=== PATIENT | male | born 1970 | race African-American/Black ===

== ENCOUNTER 2018-03-05 08:04 | Emergency (ER) | payer MEDICAID ==
[~2018-03-05] VITALS: Ht 177.8 cm; Wt 98.1 kg
[2018-03-05 08:08] VITALS: BP 125/80
== END 2018-03-05 09:13 | disposition home or self-care (01) ==
LOC: ED 09:06
DX: K02.9 Dental caries, unspecified (principal)
CPT/HCPCS: 99283

== ENCOUNTER 2018-03-17 17:43 | Emergency (ER) | payer MEDICAID ==
[~2018-03-17] VITALS: Ht 177.8 cm; Wt 98.5 kg
[2018-03-17 18:05] VITALS: BP 119/80
== END 2018-03-17 18:31 | disposition home or self-care (01) ==
LOC: ED 18:21
DX: K02.9 Dental caries, unspecified (principal); Z76.0 Encounter for issue of repeat prescription
CPT/HCPCS: 99283

== ENCOUNTER 2018-05-01 09:34 | Emergency (ER) | payer MEDICAID ==
[~2018-05-01] VITALS: Ht 177.8 cm; Wt 95.5 kg
[2018-05-01] MEDS ORDERED: HYDROcodone/APAP 5/325 TABLET ONE (09:59)
[2018-05-01] MEDS ORDERED: HYDROcodone/APAP 5/325 TABLET PO ONE (10:00)
[2018-05-01 10:16] VITALS: BP 120/61
== END 2018-05-01 10:19 | disposition home or self-care (01) ==
LOC: ED 10:00
DX: K04.7 Periapical abscess without sinus (principal)
CPT/HCPCS: 99283

== ENCOUNTER 2021-01-12 15:11 | Emergency (ER) | payer MEDICAID ==
[~2021-01-12] VITALS: Ht 177.8 cm; Wt 107.2 kg
--- NOTE | 2021-01-12 16:04 | NUR ---
URINE COLLECTED AND SENT TO LAB.
[2021-01-12 16:20] LABS: MICROSCOPIC AUTO
[2021-01-12 16:32] LABS: BASOPHILS % (AUTO) 1 % (0-1); EOSINOPHILS % (AUTO) 4 % (1-7); LYMPHOCYTES % (AUTO) 33 % (22-44); MEAN CORPUSCULAR HEMOGLOBIN 30.1 pg (27.5-34.5); MEAN CORPUSCULAR HGB CONC 32.8 g/dL (33.2-36.2); MEAN PLATELET VOLUME 8.5 fL (7.4-10.4); MONOCYTES % (AUTO) 9 % (2-9); NEUTROPHILS % (AUTO) 52 % (42-75); PLATELET COUNT 269 x10^3/uL (130-400); RED BLOOD COUNT 4.72 x10^6/uL (4.38-5.82); RED CELL DISTRIBUTION WIDTH 13.9 % (9.4-14.8)
[2021-01-12 16:45] LABS: ALBUMIN 3.5 g/dL (3.4-5.0); ANION GAP 3 mmol/L (5-15); CHLORIDE 105 mmol/L (98-107)
--- NOTE | 2021-01-12 16:47 | NUR ---
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
[2021-01-12 16:48] LABS: ALANINE AMINOTRANSFERASE 26 U/L (12-78); ALKALINE PHOSPHATASE 69 U/L (45-117); BILIRUBIN,TOTAL 0.4 mg/dL (0.2-1.0); CREATININE 1.17 mg/dL (0.7-1.3); TOTAL PROTEIN 8.3 g/dL (6.4-8.2)
--- NOTE | 2021-01-12 16:53 | NUR ---
50 YR OLD MALE HERE WITH C/O "I HAD HERNIA SURGERY 2012 I'M JUST FEELING COMPLICATIONS OF PAIN AROUND THE AREA. I HAVE A SMALL HERNIA ON MY TUMMY. I JUST WANT TO MAKE SURE I'M OK" NO IN NO ACUTE DISTRESS. PT PLACED ON AUTO BP AND PULSE OX MONITOR. PT PROVIDED WITH WARM BLANKET.
[2021-01-12 16:58] VITALS: BP 130/87
--- NOTE | 2021-01-12 18:15 | NUR ---
PT IN NO ACUTE DISTRESS, DRESSED AND AMB. NO IV TO DC. REVIEWED DC INSTRUCTIONS WITH PT. UNDERSTANDING VERBALIZED PT LEFT AMB. GAIT STEADY.
== END 2021-01-12 18:17 | disposition home or self-care (01) ==
LOC: ED 15:30
DX: K43.9 Ventral hernia without obstruction or gangrene (principal); R10.2 Pelvic and perineal pain
CPT/HCPCS: 36415; 76857; 80053; 81001; 85025; 87086; 99284